=== PATIENT | female | born 2000 | race Caucasian/White ===

== ENCOUNTER 2021-03-01 08:11 | Emergency (ER) | payer OTHER ==
[~2021-03-01] VITALS: Ht 152.4 cm; Wt 54.6 kg
[2021-03-01 08:19] VITALS: BP 126/88
[2021-03-01] MEDS ORDERED: OMEP-218 (08:25)
== END 2021-03-01 09:57 | disposition left against medical advice (07) ==
LOC: M ED 08:11
DX: Z53.21 Procedure and treatment not carried out due to patient leaving prior to being seen by health care provider (principal)

== ENCOUNTER → 2022-10-04 | Outpatient (REF) | payer OTHER ==
[~2022-10-04] MED LIST: OMEP-173
== END ==
LOC: M WUC 19:31
PROVIDERS: ATTEND Physician Assistant Medical
DX: N39.0 Urinary tract infection, site not specified (principal)

== ENCOUNTER → 2022-11-06 | Outpatient (REF) | payer OTHER | LOC: M WUC 15:52 | PROVIDERS: ATTEND Student in an Organized Health Care Education/Training Program | DX: R30.0 Dysuria (principal) ==

== ENCOUNTER → 2023-01-31 | Outpatient (CLI) | payer OTHER | LOC: M SLEEP HO 10:29 | PROVIDERS: ATTEND Internal Medicine Pulmonary Disease | DX: R06.83 Snoring (principal) ==

== ENCOUNTER → 2023-03-06 | Outpatient (REF) | payer OTHER, MEDICAID ==
[2023-03-06 15:17] LABS: THYROID STIMULATING HORMONE 1.453 uIU/ML (0.55-4.78)
== END ==
LOC: M SFHCADAM 11:09
PROVIDERS: ATTEND Family Medicine
DX: F41.8 Other specified anxiety disorders (principal)

== ENCOUNTER → 2023-06-12 | Outpatient (REF) | payer OTHER, MEDICAID | LOC: M LAB REF 16:24 | PROVIDERS: ATTEND Nurse Practitioner Family | DX: R30.0 Dysuria (principal) ==

== ENCOUNTER → 2024-02-06 | Outpatient (REF) | payer OTHER, MEDICAID | LOC: M SFHCADAM 09:16 | PROVIDERS: ATTEND Family Medicine | DX: Z00.00 Encounter for general adult medical examination without abnormal findings (principal) ==

== ENCOUNTER → 2024-05-29 | Outpatient (REF) | payer OTHER, MEDICAID ==
[2024-06-01 12:33] LABS: HPV APTIMA Detected (Not Detected)
== END ==
LOC: M SFHCWAGY 15:23
PROVIDERS: ATTEND Obstetrics & Gynecology
DX: Z12.4 Encounter for screening for malignant neoplasm of cervix (principal); R87.610 Atypical squamous cells of undetermined significance on cytologic smear of cervix (ASC-US)

== ENCOUNTER → 2025-06-05 | Outpatient (CLI) | payer OTHER ==
[~2025-06-05] MED LIST changes: +LEXA1TAB2 PO; +VENTAER INH
== END ==
LOC: M WHC 14:42
PROVIDERS: ATTEND Physician Assistant Medical
DX: R10.2 Pelvic and perineal pain (principal)